=== PATIENT | male | born 2000 | race African-American/Black ===

== ENCOUNTER 2023-11-10 12:45 | Emergency (ER) | payer OTHER ==
[~2023-11-10] VITALS: Ht 177.8 cm; Wt 86.4 kg
[2023-11-10 12:52] VITALS: BP 129/86; TEMP 97.8
[2023-11-10 13:15] LABS: COLLECTION METHOD CLEAN CATCH
[2023-11-10 13:20] LABS: PH 7.5 (5.0-8.5); URINE APPEARANCE CLEAR (CLEAR/HAZY); URINE BLOOD NEGATIVE (NEGATIVE); URINE COLOR YELLOW (YELLOW); URINE GLUCOSE NEGATIVE (NEGATIVE); URINE KETONE NEGATIVE (NEGATIVE); URINE NITRATE NEGATIVE (NEGATIVE); URINE PROTEIN(semi-quant) NEGATIVE (NEGATIVE)
[2023-11-10 13:55] VITALS: PULSE 51
== END 2023-11-10 14:01 | disposition home or self-care (01) ==
LOC: COL.ER 12:45
PROVIDERS: Physician Assistant
DX: R30.0 Dysuria (principal); F17.200 Nicotine dependence, unspecified, uncomplicated